=== PATIENT | female | born 1995 | race Caucasian/White ===

== ENCOUNTER 2017-01-05 11:20 | Emergency (ER) | payer SELFPAY ==
[2017-01-05 12:10] VITALS: RESP 20; TEMP 97.8
[2017-01-05 12:45] LABS: BLOOD UREA NITROGEN 10 mg/dL (7-22); BUN/CREATININE RATIO 16.66 (6-20); CALCIUM 9.2 mg/dL (8.7-10.7); EST GLOMERULAR FILTRATION > 60 (>60 ml/min/1.73m(2))
[2017-01-05 12:55] LABS: HEMATOCRIT 37.6 % (37.0-47.0); HEMOGLOBIN 11.9 g/dL (12.0-16.0); MEAN CORPUSCULAR HEMOGLOBIN 23.8 PG (27-31); MEAN CORPUSCULAR HGB CONC 31.6 g/dL (33-37); MEAN CORPUSCULAR VOLUME 75 FL (81-99); RED BLOOD COUNT 5.01 10^6/uL (4.20-5.40)
[2017-01-05 12:56] LABS: BASOPHILS # (AUTO) 0.02 10*3/UL; BASOPHILS % (AUTO) 0.2 % (0-1); EOSINOPHILS # (AUTO) 0.11 10*3/UL; EOSINOPHILS % (AUTO) 1.2 % (0-8); MEAN PLATELET VOLUME 9.5 FL (7.4-12.2); MONOCYTES # (AUTO) 0.64 10*3/UL (0.3-0.8); MONOCYTES % (AUTO) 7.2 % (5-15); NEUTROPHILS # (AUTO) 7.36 10*3/UL; NEUTROPHILS % (AUTO) 82.3 % (50-80); PLATELET MORPHOLOGY COMMENT NORMAL MORPHOLOGY (NORM); RBC MORPHOLOGY COMMENT NORMAL MORPHOLOGY (NORM); WBC MORPHOLOGY COMMENT SEE COMMENTS (NORM)
[2017-01-05 14:06] LABS: BILIRUBIN,URINE NEGATIVE (NEG); CLARITY,URINE CLEAR (CLEAR); COLOR,URINE YELLOW; GLUCOSE, URINE (UA) NEGATIVE (NEG); NITRATE,URINE NEGATIVE (NEG); OCCULT BLOOD,URINE NEGATIVE (NEG); PH,URINE 8.5 (5.0-8.5); PROTEIN,URINE NEGATIVE (NEG); UROBILINOGEN,URINE 0.2 EU/dL (0.2)
[2017-01-05 14:07] LABS: URINE SAMPLE TYPE CLEAN CATCH URINE
--- NOTE | 2017-01-05 15:16 | PDOC ---
General Adult HPI - General Chief Complaint: General Medical Stated Complaint: dizzy, nausea Date Seen by Provider: 01/05/17 Time Seen by Provider: 12:00 Source: POSITIVE: Patient Exam Limitations: POSITIVE: No limitations Nurse's Notes Reviewed & Considered: Yes - History of Present Illness Initial Comment: The patient is a 21-year-old female. She states that since yesterday evening she has had a sensation of "dizziness and nausea". She states she had one episode of vomiting. No fevers or chills. She states that she was recently treated for urinary tract infection. No melena, hematochezia, hematemesis, dysuria or hematuria. No rashes or skin changes. No focal sensory or motor symptoms. Have you received a tetanus shot in the past 10 years?: Yes Body Location Affected: REPORTS: Other (Dizziness with nausea has above) Timing: REPORTS: Constant, Gradual Duration: <24 hours Severity: Moderate Quality: REPORTS: Other (Patient denies any pain anywhere) Context: REPORTS: None Modifying Factors: improves with: Nothing Similar Symptoms Previously: No Recent Care Received: REPORTS: Recently Seen, Treated by MD (Recently treated for urinary tract infection) Any Prior Injuries Related to Current Complaint?: No - Patient Home Medications Home Medications: Home Medications NK [No Home Medications Reported] 01/05/17 - Patient Allergies Allergies/Adverse Reactions: Allergies Allergy/AdvReac Type Severity Reaction Status Date / Time amoxicillin Allergy FLUSHING Verified 01/05/17 12:32 bee venom protein (honey bee) Allergy HIVES Verified 01/05/17 12:32 Past Medical History - heen HEENT History: Denies History Cardiovascular History: Denies History Respiratory History: Denies History Gastrointestinal History: Denies History Genitourinary History: Denies History Endocrine History: Denies History Musculoskeletal History: Denies History Prosthesis or Implant: No Neurological History: Denies History Blood Disorders: Denies History Psychiatric History: Denies History History of Sexually Transmitted Diseases: No Female Reproductive History: Denies History Obstetrical History: Denies History : 1 Para: 1 Cancer History: Denies History In Past Year Been Physically Harmed or Verbally Threatened: No History of MDRO: No History of Other Communicable Diseases: No Tobacco Use: Former Smoker Alcohol Use: None Substance Use Type: None Previous Surgical History: No Anesthesia Reactions: No Malignant Hyperthermia: No Family History of Malignant Hyperthermia: No Significant Family History: No pertinent family hx Past Medical History Reviewed: Reviewed - No Changes ROS - Limitations ROS Limitations: No Limitations Constitution: REPORTS: Other (Dizziness, fatigability) Cardiovascular: REPORTS: Denies Cardiac Symptoms Respiratory: REPORTS: Denies Resp Symptoms Neurological: REPORTS: Dizziness Gastrointestinal: REPORTS: Nausea Endocrine: REPORTS: Denies Symptoms Musculoskeletal: REPORTS: Denies MS Symptoms Genitourinary: REPORTS: Denies Symptoms Eyes: REPORTS: Denies Symptoms ENT: REPORTS: Denies Symptoms Skin: REPORTS: Denies Skin Symptoms Lympathic: REPORTS: Denies Lympathic Symptoms Immunologic: POSITIVE: Denies Symptoms Psychiatric: POSITIVE: Denies Psych Symptoms General Adult Exam - General Appearance General Appearance: POSITIVE: Alert, Cooperative, No Acute Distress, No Evidence of Trauma - HEENT HEENT: POSITIVE: Head Inspection Nml, Eyes Inspection Nml, Ears Inspection Nml, Nose Inspection Nml, Oral/Dental Inspect. Nml, Pharynx Inspect. Nml, PERRL, EOMI - Pupils Pupil Size: 3 mm: Bilateral (PERRLA) - Neck Neck: POSITIVE: Normal Inspection, Thyroid Normal - Respiratory Respiratory: POSITIVE: No Respiratory Distress, Breath Sounds Normal, Chest Non- Tender - Cardiovascular Cardiovascular: POSITIVE: Regular Rate & Rhythm, No Murmur, No Gallop, PMI Normal Peripheral Pulses: Radial (R): 2+, Radial (L): 2+ - Abdomen Abdomen: Soft: (All Quadrants), Normal Bowel Sounds: (All Quadrants), Denies Tenderness: (All Quadrants), No Splenomegaly: (All Quadrants), No Hepatomegaly: (All Quadrants), No Guarding: (All Quadrants), No Rebound: (All Quadrants), No Palpable Pulse: (All Quadrants), No Palpabale Mass: (All Quadrants), No Distention: (All Quadrants), No Rigidity: (All Quadrants) - Back Back: POSITIVE: Normal Inspection - Skin Skin: POSITIVE: Normal Color, Warm, Dry, No Rash - Extremities Extremity: Non-Tender: (All Extremities), Normal ROM: (All Extremities), Normal Inspection: (All Extremities) - Neurological / Psychological Neurological: POSITIVE: Oriented X3, 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 Urinalysis normal) Lab Results:: Laboratory Results 01/05/17 01/05/17 Range/Units 12:21 12:32 WBC 8.95 (4.8-10.8) 10^3/uL RBC 5.01 (4.20-5.40) 10^6/uL Hgb 11.9 L (12.0-16.0) g/dL Hct 37.6 (37.0-47.0) % MCV 75 L (81-99) FL MCH 23.8 L (27-31) PG MCHC 31.6 L (33-37) g/dL RDW Std Deviation 37.1 L (39-50) fL RDW Coeff of Lorri 13.9 (11.5-14.5) % Plt Count 393 H (140-350) 10*3/uL MPV 9.5 (7.4-12.2) FL Immature Gran % (Auto) 0.2 (0-5) % Neut % (Auto) 82.3 H (50-80) % Lymph % (Auto) 8.9 L (10-50) % [place] % (Auto) 7.2 (5-15) % Eos % (Auto) 1.2 (0-8) % Baso % (Auto) 0.2 (0-1) % Immature Gran # (Auto) 0.02 10*3/UL Neut # (Auto) 7.36 10*3/UL Lymph # (Auto) 0.80 10*3/uL [place] # (Auto) 0.64 (0.3-0.8) 10*3/UL Eos # (Auto) 0.11 10*3/UL Baso # (Auto) 0.02 10*3/UL WBC Morphology Comment See comments (NORM) Plt Morphology Comment Normal morphology (NORM) RBC Morph Comment Normal morphology (NORM) Sodium 138 (135-145) meq/L Potassium 4.0 (3.8-5.2) meq/L Chloride 105 (98-112) meq/L Carbon Dioxide 24 (23-33) meq/L Anion Gap 9 (5-20) BUN 10 (7-22) mg/dL Creatinine 0.6 (0.50-1.20) mg/dL Estimated GFR > 60 (>60 ml/min/1.73m(2)) BUN/Creatinine Ratio 16.66 (6-20) Glucose 95 (78-110) mg/dL Calculated Osmolality 284.0 (267-292) mOsm/kg Calcium 9.2 (8.7-10.7) mg/dL Total Bilirubin 0.4 (0.3-1.2) mg/dL AST 18 (8-39) IU/L ALT 30 (9-52) IU/L Alkaline Phosphatase 106 (38-126) IU/L Total Protein 7.3 (6.1-8.0) g/dL Albumin 4.0 (3.5-4.8) g/dL Globulin 3.3 (2.50-4.10) g/dL Albumin/Globulin Ratio 1.20 L (1.3-2.0) mg/g Serum HCG, Qual Negative Ur Collection Type Clean catch urine Urine Color Yellow Urine Clarity Clear (CLEAR) Urine pH 8.5 (5.0-8.5) Ur Specific [place] 1.020 (1.005-1.030) Urine Protein Negative (NEG) mg/dl Urine Glucose (UA) Negative (NEG) mg/dL Urine Ketones Negative (NEG) Urine Occult Blood Negative (NEG) Urine Nitrate Negative (NEG) Urine Bilirubin Negative (NEG) Urine Urobilinogen 0.2 (0.2) EU/dL Ur Leukocyte Esterase Negative (NEG) Ur Culture Indicated? Culture not set - Patient's Progress Pain Medication Addressed: POSITIVE: Not Applicable School/Work Release Addressed: POSITIVE: Not Applicable Re-Examine Time: 14:20 Re-Examine Comment: Patient rested comfortably while in the emergency room. Essentially asymptomatic on discharge Status: POSITIVE: Improved, Re-Examined Antibiotics Given: No - Consult Counseled: POSITIVE: Patient, RE: Lab Results, RE: DX, RE: Need for F/U Patient Care Time - Estimated PCT Patient Care Time (In Minutes): 45 Vital Signs - Recent Vital Signs Vital Signs: Vital Signs (Last 8 hours) Temp Pulse Resp BP Pulse Ox 01/05/17 11:59 97.8 F 116 H 20 98/56 96 - VS Reviewed Vital Signs Reviewed: Yes Discharge Clinical Impression: Dizziness Discharge Disposition: Discharged to Home Condition: Stable Patient Instructions Given at Discharge: Dizziness (ED) Additional Instructions: Your blood and urine tests are all normal. I see no evidence of any serious ongoing problems. You may have a virus which is causing you some dizziness and nausea. I believe you're going to be fine. Increase fluids. Avoid the heat and sun for a couple of days return anytime if condition worsens. Follow-up with your primary care provider. Follow Up With: NONE,NONE [Primary Care Provider] - (Instructions as above. Follow-up with your primary care provider. Return here as necessary.)
== END 2017-01-05 14:32 | disposition home or self-care (01) ==
LOC: ER 11:31
DX: R42 Dizziness and giddiness (principal); R11.2 Nausea with vomiting, unspecified
CPT/HCPCS: 80053; 81003; 84703; 85025; 99282

== ENCOUNTER 2018-04-29 03:27 | Inpatient (IN) ==
[2018-04-29] MEDS ORDERED: Lactated Ringers 500 ML PRIMARY IV ONE (04:45)
[2018-04-29] MEDS ORDERED: Lactated Ringers 1,000 ML PRIMARY IV SCH ×3 (05:30→08:30)
[2018-04-29] MEDS ORDERED: LIDOCAINE HCL 2 % 10 ML JELLY URO-JECT TOPICAL PRN (07:42)
[2018-04-29] MEDS ORDERED: LIDOCAINE W/ SODIUM BICARB 0.5 ML SYR SUBD PRN ×2 (07:42→08:18)
[2018-04-29] MEDS ORDERED: CITRIC ACID/SODIUM CITRATE 30 ML CUP PO ONE (07:42)
[2018-04-29] MEDS ORDERED: Lactated Ringers 1,000 ML PRIMARY IV ONE ×2 (07:42→09:51)
[2018-04-29] MEDS ORDERED: Metoclopramide Inj 10 MG/2 ML VIAL IV ONE (07:42)
[2018-04-29] MEDS ORDERED: CefOXitin Inj 2 GM in Sodium Chloride 0.9% 100 ML IV ONE (07:42)
[2018-04-29] MEDS ORDERED: FAMOTIDINE 20 MG/2 ML VIAL IVP ONE (07:42)
[2018-04-29] MEDS ORDERED: Oxytocin 20 Units + LR 20 UNIT/1,000 ML BAG IV SCH ×2 (07:45→10:54)
[2018-04-29 07:58] LABS: Hematocrit [HCT] 34.9 % (37.0-47.0); Hemoglobin [HGB] 11.5 g/dL (12.0-16.0); MEAN CORPUSCULAR HEMOGLOBIN 28.7 PG (27-31); MEAN PLATELET VOLUME 9.3 FL (7.4-12.2); RED BLOOD COUNT 4.01 10^6/uL (4.20-5.40)
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
[2018-04-29] MEDS ORDERED: Sodium Chloride 0.9% 100 ML IV ONE (08:06)
[2018-04-29] MEDS ORDERED: ONDANSETRON 4 MG/2 ML VIAL IVP PRN ×2 (08:18→10:54)
[2018-04-29] MEDS ORDERED: ATROPINE SULFATE 0.4 MG/1 ML VIAL IVP PRN (08:18)
[2018-04-29] MEDS ORDERED: HYDROmorphone 2 MG/1 ML IVP PRN (08:18)
[2018-04-29] MEDS ORDERED: fentaNYL Inj 100 MCG/2 ML VIAL IVP PRN (08:18)
--- NOTE | 2018-04-29 08:19 | CRNA.PROGR ---
Anesthesia Time - Procedure/Recovery Time Start Date: 04/29/18 End Date: 04/29/18 Anesthesia : Time In: 08:42 Anesthesia : Time Out: 09:51 Anesthesia : Total Time: 69 - Total Anesthesia Time Total Anesthesia Time (minutes): 69 - Other Weight: 99.79 kg Height: 5 ft 9 in Body Mass Index (BMI): 32.5 Physical Status: P2 Anesthesia Type: Spinal Block
--- NOTE | 2018-04-29 08:19 | CRNA.PROGR ---
Anesthesia Recovery Phase I - Post Anesthesia Evaluation Patient's Condition on Arrival in Phase I: Stable Patient's Condition on Arrival in Phase II: Stable Pain Level: 0
--- NOTE | 2018-04-29 08:19 | CRNA.PROGR ---
Post Anesthesia Phase II - Post Anesthesia Phase II Patient Stable and Discharged To: OB Care Assumed By Surgeon: Chris Snyder MD Temperature: 98.1 F Pulse Rate: 87 Respiratory Rate: 20 Pulse Ox: 98 Total Rakan Score at Discharge: 9 Post Anesthesia Discharge Criteria Met: Yes
[2018-04-29] MEDS ORDERED: PHENYLEPHRINE 10,000 MCG/1 ML VIAL ONE (08:28)
[2018-04-29] MEDS ORDERED: ePHEDrine Inj 50 MG/ML AMP ONE (08:28)
[2018-04-29] MEDS ORDERED: MORPHINE SULFATE/PF 10 MG/10 ML AMPULE ONE (08:28)
[2018-04-29] MEDS ORDERED: BUPIVACAINE SPINAL 7.5 MG/1 ML - 2 ML IV ONE (08:29)
[2018-04-29] MEDS ORDERED: Sodium Chloride 0.9% vial 10 ML ONE ×2 (08:36→08:46)
[2018-04-29] MEDS ORDERED: ONDANSETRON 4 MG/2 ML VIAL ONE (09:26)
--- NOTE | 2018-04-29 09:50 | OB.OP.NOTE ---
Operative Report Surgeon: Dr. Snyder Project Management Advisor: Manfred Dumont MD Anesthesia Type: Regional Anesthesia Provider: Veronica Gaming CRNA Surgery Date: 04/29/18 Preoperative Diagnosis: Previous Delivery at 38 weeks with contractions and pain. Postoperative Diagnosis: Same Procedure: Repeat LTCS Estimated Blood Loss (mL): 650 Fluids: 4000 ml Complications: None identified Findings at Surgery: Viable male infant in LOT position, Apgars 9/10. Normal uterus, tubes, and ovaries. No evidence of abnormal placentation. Indications for the Procedure: Previous delivery at 38 weeks EGA with contractions and pelvic pain. Description of Procedure: See dictated operative report. Plan: Routine post op care.
--- NOTE | 2018-04-29 10:05 | CRNA.PROCE ---
Central Neuraxis Block Placemt - - Safety Measures: Time Out Taken - - Type of Block: Subarachnoid Reason for Block: Surgical Moniters Used During Block: EKG, SPO2 Positioning: Sitting Skin Prep Used: ChloroPrep (Twice) Skin Infiltration - Enter Amount Used in Comment Field: 1% Xylocaine (mL): Yes ( 2) Introducer User: None Spinal Needle Used: 22 Berta 80 mm (2 dura punctures. Could not get Free Flow CSF 1st puncture no matter needle orientation.) Local Anesthetic - Enter Amount Used in Comment Field: 0.75 % Bupivacaine with Dextrose (ml): Yes (2 ml) Additive Used - Enter Amount Used in Comment Field: Preservative Free Morphine ( mg): Yes (0.1 mg) - - Additional Details: Surgical quality sab. No intra procedure problems. Anesthesia Time - Other Weight: 99.79 kg Height: 5 ft 9 in Body Mass Index (BMI): 32.5
[2018-04-29] MEDS ORDERED: Nalbuphine Inj 20 MG/ML Ampule IVP PRN (10:54)
[2018-04-29] MEDS ORDERED: diphenhydrAMINE 25 MG CAPSULE PO PRN (10:54)
[2018-04-29] MEDS ORDERED: LANOLIN HPA 40 GM TUBE TOPICAL PRN (10:54)
[2018-04-29] MEDS ORDERED: diphenhydrAMINE 50 MG/1 ML VIAL IV PRN (10:54)
[2018-04-29] MEDS ORDERED: FAMOTIDINE 20 MG/2 ML VIAL IVP PRN (10:54)
[2018-04-29] MEDS ORDERED: Naloxone Inj 0.01 MG, Sodium Chloride 0.9% vial 1 ML IVP PRN ×2 (10:54)
[2018-04-29] MEDS ORDERED: CALCIUM CARBONATE 500 MG (TUMS) CHEWABLE TABLET PO PRN (10:54)
[2018-04-29] MEDS ORDERED: BUTORPHANOL TARTRATE 2 MG/1 ML VIAL IVP PRN (10:54)
[2018-04-29] MEDS ORDERED: DIPH,PERTUSS,TET(ADACEL) VAC/PF 0.5 ML (Tdap) IM ONE (10:54)
[2018-04-29] MEDS: KETOROLAC 15 MG/1 ML VIAL IVP SCH ×2 (11:11→15:54)
[2018-04-29] MEDS ORDERED: Oxytocin 20 Units + LR 20 UNIT/1,000 ML BAG IV ONE (11:14)
[2018-04-29] MEDS: D5-LR 1,000 ML PRIMARY IV SCH (15:53)
[2018-04-30] MEDS: KETOROLAC 15 MG/1 ML VIAL IVP SCH ×2 (00:42→14:01)
[2018-04-30] MEDS: D5-LR 1,000 ML PRIMARY IV SCH ×2 (01:34→14:37)
[2018-04-30 05:25] LABS: Hemoglobin [HGB] 9.5 g/dL (12.0-16.0); MEAN CORPUSCULAR HEMOGLOBIN 27.9 PG (27-31); MEAN CORPUSCULAR HGB CONC 31.7 g/dL (33-37); MEAN CORPUSCULAR VOLUME 88.2 FL (81-99); MEAN PLATELET VOLUME 10.1 FL (7.4-12.2); RED BLOOD COUNT 3.4 10^6/uL (4.20-5.40)
[2018-04-30] MEDS: oxyCODONE-ACETAMINOPHEN 5-325 TAB PO PRN ×2 (05:44→14:08)
[2018-04-30] MEDS: Senna/Docusate Tab 1 TAB TAB PO SCH ×2 (09:23→22:14)
[2018-04-30] MEDS: Prenatal Multivitamin Tab 1 TAB TAB PO SCH (09:23)
[2018-04-30] MEDS: IBUPROFEN 800 MG TABLET PO SCH ×2 (09:23→17:41)
--- NOTE | 2018-04-30 09:38 | OB.PROGRES ---
Subjective Post Day: 1 Pain Management: PO Courtney Catheter: No Flatus: Yes Small 10-25 ml Diet: Regular Feeding Method: Exculsively Ambulating: Yes Concerns / Additional Information: Abby is doing remarkably well this morning. She is ambulating without difficulty. Hasn't voided yet, but the catheter is out. Good pain control on PO meds. Objective - General General Appearance: POSITIVE: No Acute Distress - Abdomen Bowel Sounds: Present Abdominal Wound Assessment: Well Approximated, Steri Strips Intact, Clean/Dry Assesstment / Plan Assessment / Plan: POD 1, doing well. CCM.
[2018-04-30 22:18] VITALS: RESP 20; TEMP 98.1
[2018-05-01] MEDS: IBUPROFEN 800 MG TABLET PO SCH (03:52)
[2018-05-01] MEDS: oxyCODONE-ACETAMINOPHEN 5-325 TAB PO PRN (03:52)
[2018-05-01 03:54] VITALS: BP 118/76; O2SAT 98
--- NOTE | 2018-05-01 08:22 | DCSUMMARY ---
Hospitalization Summary Admit Date: 04/29/18 Discharge Date: 05/01/18 Primary Diagnosis:: Previous Delivery at 38 weeks, bibiana Primary Surgery and Date: Repeat LTCS, 04/29/18 Delivery Type: Hospital Course: Uncomplicated repeat LTCS. Post op course also uncomplicated. Discharged to home on POD 2 in good condition. F/u 1 week. / Postop Complications: None Complications: None Exam - Vitals Vital Signs: Vital Signs Temperature 98.1 F Temperature Source Oral Pulse Rate [Pulse Oximeter] 96 Pulse Rate 87 Respiratory Rate 20 Blood Pressure [Right Arm] 118/76 Blood Pressure 113/75 Pulse Ox 98 Oxygen Flow Rate 2 Oxygen Delivery Method Room Air Height 5 ft 6 in Weight 220 lb
--- NOTE | 2018-05-01 08:23 | OB.PROGRES ---
Subjective Post Day: 2 Pain Management: PO Courtney Catheter: No Flatus: Yes Lochia Color: Rubra/Red Scant < 10 ml Diet: Regular Feeding Method: Exculsively Ambulating: Yes Concerns / Additional Information: Doing well today. Ready for discharge. Assesstment / Plan Assessment / Plan: Discharge to home. F/u 1 week.
[2018-05-01] MEDS: Senna/Docusate Tab 1 TAB TAB PO SCH (08:38)
[2018-05-01] MEDS: Prenatal Multivitamin Tab 1 TAB TAB PO SCH (08:38)
== END 2018-05-01 10:20 | disposition home or self-care (01) | DRG 788 ==
LOC: OBOP 03:27 → OBOR 07:42 → OBIP 11:33
PROVIDERS: ADMIT Obstetrics & Gynecology; ATTEND Obstetrics & Gynecology